=== PATIENT | male | born 1965 | race Caucasian/White ===

== ENCOUNTER 2017-08-12 18:38 | Observation (INO) | payer MEDICAID ==
[~2017-08-12] VITALS: Ht 170.2 cm; Wt 106.0 kg
[~2017-08-12 18:38] MED LIST: ACET-3068 PO; ASPI-611 PO; ATOR40TA PO; CARV3.12 PO; ENAL5TAB PO; FLUO20CA39 PO; HYDR25TA4 PO; ISOS30TA9 PO; NITR0.4T51 SL; RANO10003 PO; TICA90TA PO
[2017-08-12] MEDS ORDERED: ondansetron/PF 4mg/2ml inj IV ONE (18:50)
[2017-08-12] MEDS ORDERED: morphine 4 MG/ML inj SYRINge IV ONE (18:50)
[2017-08-12 18:58] LABS: BASOPHILS % (AUTO) 0.4 % (0-1); EOSINOPHILS # (AUTO) 0.2 X10'3 (0-0.9); EOSINOPHILS % (AUTO) 1.9 % (0-6); HEMATOCRIT 45.7 % (42.0-52.0); HEMOGLOBIN 15.8 g/dl (14.0-17.9); LYMPHOCYTES # (AUTO) 1.9 X10'3 (1.1-4.8); MEAN CORPUSCULAR HEMOGLOBIN 32.1 PG (27.0-31.0); MEAN CORPUSCULAR HGB CONC 34.5 % (33.0-36.5); MEAN CORPUSCULAR VOLUME 93.1 FL (78-98); MEAN PLATELET VOLUME 9.7 FL (7.4-10.4); MONOCYTES # (AUTO) 0.9 X10'3 (0-0.9); MONOCYTES % (AUTO) 8.5 % (2-12); NEUTROPHILS # (AUTO) 7.6 X10'3 (1.8-7.7); NEUTROPHILS % (AUTO) 71.2 % (42-75); PLATELET COUNT 249 X10'3 (140-440); RED BLOOD COUNT 4.91 X10'6 (4.70-6.10); RED CELL DISTRIBUTION WIDTH 13.5 % (11.5-14.5); WHITE BLOOD COUNT 10.6 X10'3 (4.5-11.0)
[2017-08-12] MEDS ORDERED: enoxaparin 100mg/ml syringe SUBCUT ONE ×2 (19:05→19:10)
[2017-08-12 19:09] LABS: ALANINE AMINOTRANSFERASE 49 U/L (12-78); ALBUMIN 3.6 G/DL (3.4-5.0); ALBUMIN/GLOBULIN RATIO 1.1 (1.1-1.5); ALKALINE PHOSPHATASE 80 IU/L (46-116); ANION GAP 12 (8-16); ASPARTATE AMINO TRANSFERASE 24 U/L (10-37); BILIRUBIN,TOTAL 0.4 MG/DL (0.1-1.0); BLOOD UREA NITROGEN 13 MG/DL (7-18); BUN/CREATININE RATIO 11.4 (5.4-32.0); CALCIUM 8.8 MG/DL (8.5-10.1); CHLORIDE 105 MMOL/L (99-107); CREATININE 1.14 MG/DL (0.60-1.10); GLUCOSE 95 MG/DL (70-104); POTASSIUM 3.5 MMOL/L (3.5-5.1); SODIUM 142 MMOL/L (135-145); TOTAL CARBON DIOXIDE 25.5 MMOL/L (24-32); TOTAL PROTEIN 6.9 G/DL (6.4-8.2); eGFR 67 ML/MIN
[2017-08-12] MEDS ORDERED: EZET10TA13 PO (19:16)
[2017-08-12] MEDS ORDERED: GABA-532 PO (19:16)
[2017-08-12] MEDS ORDERED: CARV6.253 PO (19:16)
[2017-08-12] MEDS ORDERED: ENAL2.5T40 PO (19:16)
[2017-08-12] MEDS ORDERED: METF500T PO (19:16)
[2017-08-12 19:17] LABS: MAGNESIUM 1.8 MG/DL (1.5-2.4)
[2017-08-12] MEDS ORDERED: CAFFEINE CITRATE 60 MG/3 ML injection vial IV PRN (20:55)
[2017-08-12] MEDS ORDERED: HYDROcodone/acetaminophen 10/325mg tab PO PRN (20:55)
[2017-08-12] MEDS ORDERED: HYDROcodone/acetaminophen 5mg/325mg tablet PO PRN (20:55)
[2017-08-12] MEDS ORDERED: regadenoson 0.4mg/5ml syringe IV ONE (20:55)
[2017-08-12] MEDS ORDERED: nitroGLYCERIN 0.4mg SUBLingual tab SL PRN (20:55)
[2017-08-12] MEDS ORDERED: metoprolol tartrate 1mg/ml inj IV PRN (20:55)
[2017-08-12] MEDS ORDERED: mag hydrox/Alum hydrox/simeth 30ml oral suspension PO PRN (20:55)
[2017-08-12] MEDS ORDERED: acetaminophen 325mg tablet PO PRN ×2 (20:55)
[2017-08-12] MEDS ORDERED: ondansetron/PF 4mg/2ml inj IV PRN (20:55)
[2017-08-12] MEDS ORDERED: magnesium hydroxide 30ml (MOM) UD suspension PO PRN (20:55)
[2017-08-12] MEDS ORDERED: temazepam 15mg capsule PO PRN (21:00)
[2017-08-12 23:00] VITALS: BP 111/53
[2017-08-12] MEDS: gabapentin 300mg capsule PO SCH (23:48)
[2017-08-13] VITALS (14 sets, daily range): BP systolic 84–107; BP diastolic 48–65
[2017-08-13 07:39] LABS: BASOPHILS % (AUTO) 0.7 % (0-1); EOSINOPHILS # (AUTO) 0.2 X10'3 (0-0.9); EOSINOPHILS % (AUTO) 3.8 % (0-6); HEMOGLOBIN 14.8 g/dl (14.0-17.9); LYMPHOCYTES % (AUTO) 35.1 % (21-51); MEAN CORPUSCULAR HEMOGLOBIN 31.9 PG (27.0-31.0); MEAN CORPUSCULAR HGB CONC 34.3 % (33.0-36.5); MEAN PLATELET VOLUME 10.2 FL (7.4-10.4); MONOCYTES # (AUTO) 0.6 X10'3 (0-0.9); MONOCYTES % (AUTO) 10.9 % (2-12); NEUTROPHILS # (AUTO) 2.8 X10'3 (1.8-7.7); NEUTROPHILS % (AUTO) 49.5 % (42-75); PLATELET COUNT 209 X10'3 (140-440); RED BLOOD COUNT 4.63 X10'6 (4.70-6.10); RED CELL DISTRIBUTION WIDTH 13.5 % (11.5-14.5); WHITE BLOOD COUNT 5.6 X10'3 (4.5-11.0)
[2017-08-13] MEDS: gabapentin 300mg capsule PO SCH ×2 (07:54→15:46)
[2017-08-13 07:56] LABS: ALBUMIN 3.2 G/DL (3.4-5.0); ANION GAP 9 (8-16); BLOOD UREA NITROGEN 14 MG/DL (7-18); BUN/CREATININE RATIO 13.2 (5.4-32.0); CALCIUM 8.6 MG/DL (8.5-10.1); CHLORIDE 106 MMOL/L (99-107); CREATININE 1.06 MG/DL (0.60-1.10); GLUCOSE 104 MG/DL (70-104); POTASSIUM 3.8 MMOL/L (3.5-5.1); SODIUM 141 MMOL/L (135-145); TOTAL CARBON DIOXIDE 26.2 MMOL/L (24-32); eGFR 73 ML/MIN
[2017-08-13] MEDS ORDERED: atorvastatin 20mg tablet PO SCH (08:00)
[2017-08-13] MEDS ORDERED: ezetimibe 10mg tablet PO SCH (08:00)
[2017-08-13] MEDS ORDERED: FLUoxetine 20mg capsule PO SCH (08:00)
[2017-08-13] MEDS ORDERED: nitroGLYCERIN 0.4mg/hour patch TD SCH (08:00)
[2017-08-13] MEDS ORDERED: carvedilol 6.25mg tablet PO SCH (08:00)
[2017-08-13] MEDS ORDERED: ticagrelor 90mg tablet PO SCH (08:00)
[2017-08-13] MEDS ORDERED: HYDROchlorothiazide 25mg tablet PO SCH (08:00)
[2017-08-13] MEDS ORDERED: aspirin 81mg tablet.DR PO SCH (08:00)
[2017-08-13] MEDS ORDERED: lisinopril 5mg tablet PO SCH (08:00)
[2017-08-13] MEDS ORDERED: regadenoson 0.4mg/5ml syringe IV ONE (09:12)
[2017-08-13] MEDS ORDERED: CAFFEINE CITRATE 60 MG/3 ML injection vial IV ONE (09:12)
== END 2017-08-13 16:30 | disposition home or self-care (01) ==
LOC: ER 18:39 → ED HOLD 20:55 → PCU 3S 22:07
PROVIDERS: ADMIT Hospitalist; ATTEND Hospitalist
DX: R07.89 Other chest pain (principal); F17.210 Nicotine dependence, cigarettes, uncomplicated; E11.9 Type 2 diabetes mellitus without complications; E78.00 Pure hypercholesterolemia, unspecified; G47.33 Obstructive sleep apnea (adult) (pediatric); I10 Essential (primary) hypertension; J45.909 Unspecified asthma, uncomplicated; K21.9 Gastro-esophageal reflux disease without esophagitis; I25.10 Atherosclerotic heart disease of native coronary artery without angina pectoris; I25.2 Old myocardial infarction; Z95.0 Presence of cardiac pacemaker; Z95.5 Presence of coronary angioplasty implant and graft; Z79.82 Long term (current) use of aspirin
CPT/HCPCS: 36415; 71045; 78452; 80048; 80053; 82948; 83735; 83880; 84484; 85025; 87070; 93005; 93017; 96372; 96374; 96375; 99285; A9500; G0378; J1650; J2270; J2405; J7030